=== PATIENT | female | born 1980 | race Caucasian/White ===

== ENCOUNTER 2020-03-12 00:34 | Emergency (ER) | payer BC ==
--- NOTE | 2020-03-12 00:46 | EDM.PDOC ---
ED HPI GENERAL MEDICAL PROBLEM - General Chief Complaint: Back Pain or Injury Stated Complaint: BACK PAIN NAUSEA Time Seen by Provider: 03/12/20 00:45 Source of Information: Reports: Patient History Limitations: Reports: No Limitations - History of Present Illness INITIAL COMMENTS - FREE TEXT/NARRATIVE: 39-year-old female presents to the ED complaining of severe upper mid back pain. No known injuries although she is suspicious that doing bent over rows at the gym may be exacerbating current symptoms. Patient was to the chiropractor on Monday morning 2 days ago and felt that she did get satisfactory transient relief. At present pain is worsened by deep breathing and certain movements. No position is comfortable. She notes that she usually sleeps flat on her back. She had a similar problem in December of this year again improved with chiropractic manipulation. Pain was bad enough tonight that there is no way she can sleep. She states it was bad enough that she actually vomited from the intensity of the pain. Onset: Gradual Onset Date: 03/09/20 Duration: Day(s):, Getting Worse Location: Reports: Back (Feels it in her upper mid back. Unable to definitely say) Quality: Reports: Ache ( one side is worse than the other.), Burning, Throbbing, Other (Patient was sharp and stabbing.) Severity: Severe Improves with: Reports: None Worsens with: Reports: Movement (Movement and deep breathing make it worse) Context: Reports: Other (Simply related to exercises she is doing at the gym.). Denies: Activity, Exercise, Lifting, Sick Contact, Trauma Associated Symptoms: Reports: No Other Symptoms, Nausea/Vomiting. 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, NSAIDS (Return with no relief.) Upper Back Pain Score (Numeric/FACES): 7 - Related Data Allergies Allergy/AdvReac Type Severity Reaction Status Date / Time No Known Allergies Allergy Verified 03/12/20 00:42 Home Meds: Home Meds Diclofenac Sodium [Voltaren] 75 mg PO BIDMEALS #16 tab.cr 03/12/20 [Rx] Past Medical History Musculoskeletal History: Reports: Other (See Below) (Nasal problems with upper mid back pain) Social & Family History - Living Situation & Occupation Living situation: Reports: 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 Denies: Wheezing, Pleuritic Chest Pain (Active shortness of breath a deep breathing makes the back pain worse.), Cough, Sputum Cardiovascular: Denies: Chest Pain, Blood Pressure Problem, Claudication, Dyspnea on Exertion, Edema, Lightheadedness, Orthopnea Endocrine: Reports: No Symptoms GI/Abdominal: Reports: Nausea, Vomiting (And once tonight due to the severity of her upper mid back pain). Denies: Abdominal Pain : Reports: Hematuria Musculoskeletal: Reports: Back Pain (History of present illness.) Skin: Reports: No Symptoms Neurological: Reports: No Symptoms Psychiatric: Reports: No Symptoms ED EXAM, UPPER BACK/NECK PAIN - Physical Exam Exam: See Below Exam Limited By: No Limitations General Appearance: Alert, WD/WN, Mild Distress, Other (Patient prefers to stand versus lie down as this makes the pain worse. Temperature is 36.0 heart rate 81 and sinus with respiratory of 17 and O2 sats of 98 to 99% on room air) Eye Exam: Bilateral Eye: Normal Inspection, PERRL (No scleral icterus or blepharal pallor.) Throat/Mouth Exam: Normal Inspection, Normal Lips, Normal Oropharynx Head Exam: Atraumatic, Normocephalic Neck Exam: Non-Tender, Full Range of Motion, Normal Alignment, Normal Inspection. No: Paraspinous Muscle Tender, Stiff Neck Nexus Criteria: No: Posterior, Midline Cervical Tenderness, Evidence of Intoxication, Altered Level of Consciousness, Focal Neurological Deficit, Painful Distraction Injuries Cardiovascular/Respiratory: Regular Rate, Rhythm, No M/R/G, Normal Peripheral Pulses, Normal Breath Sounds, No Respiratory Distress Back Exam: Other (On examination she has paraspinal muscle spasm on the right side of her thoracic spine. She has localized tenderness to I believe thoracic 5 rib head with a palpable nodule compared with rib head subluxation in this area. No subluxation of ribs appreciated on the left side. 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 As Tested, No Motor/Sensory Deficits, Alert, Normal Mood/Affect, Oriented x 3 Psychiatric: Normal Affect, Normal Mood Skin Exam: Normal Color, Warm/Dry Course - Vital Signs Last Recorded V/S: Last Vital Signs Temp 36.0 C L 03/12/20 00:42 Pulse 81 03/12/20 00:42 Resp 17 03/12/20 00:42 BP 137/94 H 03/12/20 00:42 Pulse Ox 98 03/12/20 00:42 - Orders/Labs/Meds Meds: Medications Discontinued Medications Generic Name Dose Route Start Last Admin Trade Name Pa PRN Reason Stop Dose Admin Hydromorphone HCl 1 mg 03/12/20 01:10 03/12/20 01:24 Dilaudid IM 03/12/20 01:11 1 mg ONETIME ONE Administration Promethazine HCl 12.5 mg 03/12/20 01:10 03/12/20 01:23 Phenergan IM 03/12/20 01:11 12.5 mg ONETIME ONE Administration - Radiology Interpretation Free Text/Narrative:: 39-year-old female presents to the ED with severe pain in her right upper mid back. Pain was bad enough earlier this evening that it made her vomit. Pain started 2 days ago and she did follow-up with a chiropractor on Monday with temporary relief of the pain. Tonight the pain seemed to be much worse. The history suggest she may be causing rib head subluxation by doing bent over lateral rows with weights at the gym. Examination reveals paraspinal muscle spasm adjacent to the right side of her thoracic spine at approximately T5 level. She is going to need to follow-up with chiropractor to have this red uced. Tonight I am going to give her an IM injection of Dilaudid 1 mg with Phenergan 12.5 mg for muscle spasm and antinausea relief. Placed on Voltaren 75 mg twice daily for 8 days. She will follow-up with chiropractor tomorrow hopefully. Departure - Departure Time of Disposition: 01:32 Disposition: Home, Self-Care 01 Condition: Fair Clinical Impression: Acute thoracic back pain Qualifiers: Back pain laterality: midline Qualified Code(s): M54.6 - Pain in thoracic spine - Discharge Information *PRESCRIPTION DRUG MONITORING PROGRAM REVIEWED*: Not Applicable *COPY OF PRESCRIPTION DRUG MONITORING REPORT IN PATIENT AMANDA: Not Applicable Prescriptions: Diclofenac Sodium [Voltaren] 75 mg PO BIDMEALS #16 tab.cr Instructions: Thoracic Strain Referrals: Oksana Madison HONING MACHINE OPERATOR [Primary Care Provider] - Forms: ED Department Discharge Additional Instructions: Evaluation in the emergency room tonight in regards to development of severe upper mid back pain that was intense enough to make you vomit tonight. As you indicated you been having recurrent problems with upper back pain usually remedied by chiropractic manipulation. On examination rib head subluxation identified on the right side midline of back at thoracic 4-5 level. This causes over lying muscle spasm and pain due to inflammation of the nerve the travels underneath each rib after it exits the spine. Treatment in the emergency room tonight was an IM injection of pain medicine Dilaudid mixed with Phenergan 12.5 mg for muscle spasm. This will cause you to be quite sleepy for the next 4 to 6 hours. Suggest use of Voltaren 75 mg twice daily usually with breakfast and after supper to relieve pain and inflammation until further chiropractic manipulation can be obtained. We discussed exercise program at the gym using weights particularly bent over lateral rows may be causing the rib head to sublux. Suggest trying sizes to strengthen the rear deltoids which should also improve rhomboid muscles and thoracic paraspinal muscle spasm strength in the hopes of preventing further rib head subluxation. Aloe up with chiropractor hopefully tomorrow to have the rib head put back in position. Sepsis Event Note (ED) - Evaluation Sepsis Screening Result: No Definite Risk - Focused Exam Vital Signs: Vital Signs Temp Pulse Resp BP Pulse Ox 03/12/20 00:42 36.0 C L 81 17 137/94 H 98
[2020-03-12] MEDS ORDERED: HYDROmorphone 1 MG/ML Syringe IM ONE (01:10)
[2020-03-12] MEDS ORDERED: Promethazine 25 MG/ML SDV IM ONE (01:10)
== END 2020-03-12 01:32 | disposition home or self-care (01) ==
LOC: JD.ED 00:34
DX: M62.830 Muscle spasm of back (principal)
CPT/HCPCS: 96372; 99283; J1170; J2550

== ENCOUNTER 2020-04-05 01:15 | Emergency (ER) | payer BC ==
[2020-04-05] MEDS ORDERED: Hyoscyamine 0.125 MG Tab.SL SL ONE ×3 (02:08→02:20)
--- NOTE | 2020-04-05 02:09 | EDM.PDOC ---
ED HPI GENERAL MEDICAL PROBLEM - General Chief Complaint: Abdominal Pain Stated Complaint: ABDOMINAL AND BACK PAIN Time Seen by Provider: 04/05/20 02:07 Source of Information: Reports: Patient History Limitations: Reports: No Limitations - History of Present Illness INITIAL COMMENTS - FREE TEXT/NARRATIVE: Pleasant 39-year-old female presents to the ED complaining of diffuse abdominal pain primarily periumbilical rating into her epigastrium and between her shoulder blades. She states she awoke from sleep at about 00 30 hours this morning in severe pain. Pain precipitated nausea and vomiting of bilious emesis. No hematemesis. Patient has a history of documented gallstones and is actually scheduled for laparoscopic cholecystectomy with Dr. Torrez in [facility] on April 06. She was concerned that her gallbladder was acting up once again. Denies any fever or chills. States her bowel function has been normal. Previous abdominal surgery is that of an abdominal plasty after . She has had no bariatric surgery. At the time I seen the patient in the ED pain had eased up a good deal and was nearly gone. Onset: Today, Sudden Onset Date: 04/05/20 Onset Time: 00:30 Duration: Minutes:, Colic (Pain is constant with a strong colicky component.) Location: Reports: Abdomen (Severe periumbilical pain rating up into the epigastrium.) Quality: Reports: Sharp, Stabbing (Colicky component to the pain in which was mostly periumbilical.), Other Severity: Moderate (8 out of 10.) Improves with: Reports: None Worsens with: Reports: None Context: Reports: Other (Awoke from sleep with acute abdominal pain.). Denies: Activity, Exercise, Lifting, Sick Contact, Trauma Associated Symptoms: Reports: Loss of Appetite, Nausea/Vomiting. 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 [No Known Home Meds] 04/05/20 [History] Past Medical History Gastrointestinal History: Reports: Cholelithiasis (Scheduled for laparoscopic cholecystectomy with Dr. 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 Denies: Fever, Chills, Malaise, Weakness, Fatigue, Weight Loss HEENT: Reports: No Symptoms Respiratory: Reports: No Symptoms Cardiovascular: Reports: No Symptoms Endocrine: Reports: No Symptoms GI/Abdominal: Reports: Abdominal Pain (Acute onset of periumbilical pain that precipitated nausea and vomiting approximately an hour ago that woke her from sleep.), Constipation, Nausea, Vomiting (Vomit once of bilious material. No hematemesis). Denies: Decreased Appetite (Patient on problems with constipation in the past.), Difficulty Swallowing, Distension, Flatus, Hematemesis, Hematochezia, Melena, Mucous in Stool : Reports: No Symptoms Musculoskeletal: Reports: No Symptoms Skin: Reports: No Symptoms Neurological: Reports: No Symptoms Psychiatric: Reports: No Symptoms Hematologic/Lymphatic: Reports: No Symptoms Immunologic: Reports: No Symptoms ED EXAM, GI/ABD - Physical Exam Exam: See Below Exam Limited By: No Limitations General Appearance: Alert, WD/WN, Mild Distress, Other (At the time she was seen in the ED she reported that the abdominal pain had pretty well resolved. Vital signs showed a temperature of 36.7 with a heart rate of 90 and sinus. Respiratory to 16 with O2 sats of 98% room air BP slightly elevated 1 [id number].) Eyes: Bilateral: Normal Appearance Throat/Mouth: Normal Inspection, Normal Lips, Normal Teeth, Normal Oropharynx Head: Atraumatic, Normocephalic Neck: Normal Inspection, Supple, Non-Tender, Full Range of Motion. No: Lymphadenopathy (L), Lymphadenopathy (R) Respiratory/Chest: No Respiratory Distress, Lungs Clear, Normal Breath Sounds, No Accessory Muscle Use Cardiovascular: Normal Peripheral Pulses, Regular Rate, Rhythm, No Edema, No Gallop, No Murmur, No Rub GI/Abdominal Exam: Soft, Non-Tender, No Organomegaly, No Abnormal Bruit, No Mass, Pelvis Stable, Abnormal Bowel Sounds (Bowel sounds are mildly hyperactive in all 4 quadrants.), Other (No specific area of tenderness in particular negative Silver sign no evidence of gallbladder related illness at this time. Patient has had surgical scars from previous abdominal plasty) Back Exam: Normal Inspection, Full Range of Motion. No: CVA Tenderness (L), CVA Tenderness (R) Extremities: Normal Inspection, Normal Range of Motion, Non-Tender, No Pedal Edema Neurological: Alert, Oriented, CN II-XII Intact, Normal Cognition, Normal Gait Psychiatric: Normal Affect, Normal Mood Skin Exam: Warm, Dry, Intact, Normal Color, No Rash Course - Vital Signs Last Recorded V/S: Last Vital Signs Temp 36.7 C 04/05/20 01:23 Pulse 90 04/05/20 01:23 Resp 16 04/05/20 01:23 BP 144/89 H 04/05/20 01:23 Pulse Ox 98 04/05/20 01:23 - Orders/Labs/Meds Orders: Active Orders 24 hr Category Date Time Status Abdomen 1V Flat [CR] Stat Exams 04/05/20 02:08 Taken Meds: Medications Discontinued Medications Generic Name Dose Route Start Last Admin Trade Name Pa PRN Reason Stop Dose Admin Hyoscyamine 0.125 mg 04/05/20 02:08 Hyomax-Sl SL 04/05/20 02:09 ONETIME ONE Hyoscyamine 0.125 mg 04/05/20 02:08 04/05/20 02:18 Hyomax-Sl SL 04/05/20 02:09 0.125 mg ONETIME ONE Administration Hyoscyamine 0.125 mg 04/05/20 02:20 04/05/20 02:48 Hyomax-Sl SL 04/05/20 02:21 0.125 mg ONETIME ONE Administration Magnesium Citrate 210 ml 04/05/20 02:42 04/05/20 02:48 Citrate Of Magnesia PO 04/05/20 02:43 210 ml ONETIME ONE Administration - Radiology Interpretation Free Text/Narrative:: 39-year-old female presents to the ED after awakening from sleep about 00 30 hours with acute periumbilical abdominal pain which was strongly colicky in nature. This precipitated acute nausea and vomiting of bilious emesis. She felt pain radiate up into her epigastrium and between her shoulder blades upon vomiting. Patient has a history of cholelithiasis and is scheduled for a laparoscopic cholecystectomy in [place] on Monday, April 06. She was gomez rned that this was her gallbladder acting up again. On exam however she appreciates pain mostly periumbilical. Of note she has decreased sensation lower abdominal wall from previous abdominal plasty. There are no peritoneal signs. Bowel sounds are mildly hyperactive in all 4 quadrants. Negative Silver sign. Plan Levsin 0.125 mg sublingual now and repeat in 10 minutes. KUB to be performed. - Re-Assessments/Exams Free Text/Narrative Re-Assessment/Exam: 04/05/20 02:36 KUB reveals increased stool throughout the transverse colon and portions of the descending colon. No signs of bowel obstruction. He is pain- free now and feeling much better. I suspect the transient intestinal colic caused the nausea and vomiting. There is no clinical evidence that this was related to gallbladder. Plan will be to provide bowel cleanse with magnesium citrate 7 ounces by mouth mixed with 6 ounces of juice later this morning. Advised that she should be on MiraLAX powder 17 g daily after gallbladder surgery for about 10 days to prevent constipation from reoccurring for pain medication and reduced dietary intake. Departure - Departure Time of Disposition: 02:41 Disposition: Home, Self-Care 01 Condition: Fair Clinical Impression: Acute abdominal pain, Constipation by delayed colonic transit - Discharge Information *PRESCRIPTION DRUG MONITORING PROGRAM REVIEWED*: Not Applicable *COPY OF PRESCRIPTION DRUG MONITORING REPORT IN PATIENT AMANDA: Not Applicable Instructions: Abdominal Pain, Adult, Constipation, Adult, [id number] Referrals: Terence Aguilera MD [Primary Care Provider] - Forms: ED Department Discharge Additional Instructions: Evaluation in the emergency room tonight in regards to development of diffuse severe periumbilical abdominal pain that was intense enough to make you vomit. Concern of course was for recurrent gallbladder attack. On exam however there is no clinical evidence that the gallbladder is part of his pain syndrome. Pain appears to be coming more from the small bowel from intense intestinal colic or contractions of the bowel. An x-ray of the abdomen does reveal increased stool throughout the transverse colon which travels from right to left across her upper abdomen and portions of the descending colon on the left side. Treatment to cleanse the bowel is magnesium citrate or Citroma. Take 7 ounces of this medication mixed with 6 ounces of juice of choice later this morning. It usually starts to work in 1 to 2 hours and the bowels will usually move 3 or 4 times ending in bowel cleanse. You are still okay to proceed with gallbladder surgery in [place] on April 06. Suggest that you purchase some MiraLAX powder and take 17 g or 1 scoop daily for the next 10 days after surgery to prevent constipation recurring from decreased dietary intake and pain medication after surgery. Received a tablet of Levsin 0.125 mg in the ED and 1 again at the time of discharge to relieve abdominal pain overnight. Sepsis Event Note (ED) - Evaluation Sepsis Screening Result: No Definite Risk - Focused Exam Vital Signs: Vital Signs Temp Pulse Resp BP Pulse Ox 04/05/20 01:23 36.7 C 90 16 144/89 H 98 - My Orders Last 24 Hours: My Active Orders 04/05/20 02:08 Abdomen 1V Flat [CR] Stat - Assessment/Plan Last 24 Hours: My Active Orders 04/05/20 02:08 Abdomen 1V Flat [CR] Stat
[2020-04-05] MEDS ORDERED: Magnesium Citrate Solution 296 ML Bottle PO ONE (02:42)
--- NOTE | 2020-04-06 12:34 | CR ---
PROCEDURE INFORMATION: Exam: XR Abdomen, 1 View Exam date and time: 04/05/2020 2:09 AM Age: 39 years old Clinical indication: Abdominal pain; Patient HX: Pain in abdomen onset few hours prior TECHNIQUE: Imaging protocol: XR of the abdomen. Views: Frontal supine view of the abdomen. 1 View. COMPARISON: No relevant prior studies available. FINDINGS: Gastrointestinal tract: Normal. No bowel dilation. Bones/joints: Unremarkable. IMPRESSION: No acute findings. Thank you for allowing us to participate in the care of your patient. Dictated and Authenticated by: Buhmika Lopez MD 04/05/2020 3:51 AM Central Time ([place] & [place]) [place]
== END 2020-04-05 02:45 | disposition home or self-care (01) ==
LOC: JD.ED 01:15
DX: K59.01 Slow transit constipation (principal)
CPT/HCPCS: 74018; 99284; A9270; 99283